=== PATIENT | male | born 1985 | race Caucasian/White ===

== ENCOUNTER 2020-09-30 | Outpatient (CLI) | payer BC | END 2020-09-30 10:45 | disposition critical access hospital (66) | DX: R55 Syncope and collapse (principal) | CPT/HCPCS: A0425; A0429 ==

== ENCOUNTER 2020-09-30 11:02 | Emergency (ER) | payer BC ==
--- NOTE | 2020-09-30 11:47 | XRAY Report ---
PROCEDURE: Chest 1 View X-Ray INDICATIONS: Chest Pain TECHNIQUE: One view of the chest was acquired. COMPARISON: None. FINDINGS: Surgical changes and devices: None. Lungs and pleura: No pleural effusions or pneumothorax. Lungs are clear. Mediastinum: Mediastinal contours appear normal. Heart size is normal. Bones and chest wall: No suspicious bony lesions. Overlying soft tissues appear unremarkable. IMPRESSION: Normal chest radiograph. Reviewed by: Gustavo Tate MD on 09/30/2020 11:46 AM PDT Approved by: Gustavo Tate MD on 09/30/2020 11:46 AM PDT Station ID: [id number]
--- NOTE | 2020-09-30 11:55 | ED Physician Documentation ---
History of Present Illness - Stated complaint Stated Complaint: SYNCOPE - Chief complaint Chief Complaint: Neuro - Additonal information Additional information: 35-year-old male presents to the emergency department for evaluation of a syncopal event. Reports getting his COVID-19 vaccination this a.m. and fainting about 10 minutes after the vaccine. He reports that he has fainted multiple times in the past after receiving injections, or getting his blood drawn. However this was a more delayed response than he is used to. Initially after the vaccine he did feel little lightheaded and waited the 10 minutes but then felt maybe he needed to eat. He proceeded to go to a caf and order some orange juice where he then fainted. LOC for about 5 seconds per bystander reprots. He fell down onto a table striking his chin and also has an abrasion on the right side of his chest. At this time he is declining a lab draw. He denies feeling faint or lightheaded. He denies chest pain or shortness of air. Review of Systems Constitutional: denies: Fever, Chills Eyes: reports: Reviewed and negative Ears: reports: Reviewed and negative Nose: reports: Reviewed and negative Throat: reports: Reviewed and negative Cardiac: reports: Reviewed and negative Respiratory: reports: Reviewed and negative GI: reports: Reviewed and negative : reports: Reviewed and negative Skin: reports: Reviewed and negative Musculoskeletal: denies: Neck pain, Back pain Neurologic: reports: Syncope. denies: Generalized weakness, Focal weakness, Numbness, Difficulty speaking, Near syncope, Seizure, Confused, Headache, Head injury, LOC Psychiatric: reports: Reviewed and negative PD PAST MEDICAL HISTORY - Past Medical History Past Medical History: No Cardiovascular: None Respiratory: None Neuro: None Endocrine/Autoimmune: None GI: None : None HEENT: None Psych: None Musculoskeletal: None Derm: None - Past Surgical History Past Surgical History: No - Present Medications Home Medications: Ambulatory Orders Medication Instructions Recorded Confirmed No Known Home Medications 09/30/20 09/30/20 - Allergies Allergies/Adverse Reactions: Allergies Allergy/AdvReac Type Severity Reaction Status Date / Time No Known Drug Allergies Allergy Verified 09/30/20 11:07 - Social History Does the pt smoke?: No Smoking Status: Never smoker Does the pt drink ETOH?: Yes Does the pt have substance abuse?: No - Immunizations Immunizations are current?: Yes PD ED PE EXPANDED - General General: Alert, No acute distress, Well developed/nourished - HEENT HEENT: PERRL, EOMI, Ears normal, Pharynx normal, Dentition normal, Other (abrasion left chin. No trismus. No dentalgia. ). No: Dental trauma - Neck Neck: Supple w/out meningeal sx. No: Adenopathy - Cardiac Cardiac: Regular Rate, Regular Rhythm, Radial strong equal, Pedal strong equal, Cap refill < 2 sec - Respiratory Respiratory: Clear to ausultation pelon. No: Distress, Labored - Abdomen Abdomen: Normal Bowel sounds. No: Tender to palpation - Derm Derm: Normal color, Warm and dry, Other (abrasion right anterior chest; left chin) - Neuro Neuro: Alert and Oriented X 3, CNII-XII intact - GCS Eye Opening: Spontaneous Motor: Obeys Commands Verbal: Oriented Total: 15 Results - Vitals Vitals: Vital Signs - 24 hr 09/30/20 09/30/20 09/30/20 11:08 11:21 11:22 Temperature 36.7 C Heart Rate 55 L 63 Heart Rate [ 58 L Sitting] Heart Rate [ 64 Standing] Heart Rate [ 54 L Supine] Respiratory 16 18 Rate Blood Pressure 111/76 111/80 Blood Pressure 109/74 [Sitting] Blood Pressure 111/80 [Standing] Blood Pressure 106/78 [Supine] O2 Saturation 100 100 Oxygen O2 Source Room air - EKG (time done) 1104 Rate: Rate (enter#) (57) Rhythm: NSR [place]: Normal Intervals: Normal HI QRS: Normal Ischemia: ST elevation c/w repol Compare to prior EKG: Old EKG unavailable Computer interpretation: Agree with computer - Rads (name of study) CXR Radiology: Final report received (normal chest radiograph) PD MEDICAL DECISION MAKING - ED course Complexity details: reviewed results, re-evaluated patient ED course: This is a well-appearing 35-year-old male that presents with emergency department after syncopal event this afternoon when he received his COVID-19 vaccine. He reports multiple episodes of syncope in the past when receiving vaccines or after blood draws. THis is likely vasovagal. Here in the EKG he has declined all blood work including a glucose check. His screening EKG is unrem arkable as well as his EKG. This consistent with early repole but no WPW or Brugada noted. At this time the gentleman appears well feels back to baseline and desires to be discharged home. Emergent return precautions were discussed. Departure - Departure Disposition: 01 Home, Self Care Clinical Impression: Syncope Qualifiers: Syncope type: vasovagal syncope Qualified Code(s): R55 - Syncope and collapse Condition: Stable Record reviewed to determine appropriate education?: Yes Instructions: ED Syncope Vasovagal Comments: Aric you are seen in the emergency department today after a fainting episode. You most likely had a vasovagal event after receiving your vaccine. These can be delayed by a little bit. Your screening EKG today is unremarkable. Your chest x-ray is normal. You were offered screening labs but declined to this. When you do receive your second Covid vaccination I do recommend that you remain laying for 10 to 15 minutes. Return to the emergency department for any seizure activity, recurrent fainting episodes, chest pain or shortness of breath.
[2020-09-30 12:13] VITALS: BP 120/81
== END 2020-09-30 12:25 | disposition home or self-care (01) ==
LOC: ED 11:02
DX: R55 Syncope and collapse (principal); S00.81XA Abrasion of other part of head, initial encounter; S20.311A Abrasion of right front wall of thorax, initial encounter; W18.39XA Other fall on same level, initial encounter; Y92.511 Restaurant or cafe as the place of occurrence of the external cause
CPT/HCPCS: 80053; 83690; 84484; 85025; 93005; 99283; 99284